=== PATIENT | female | born 1970 | race Caucasian/White ===

== ENCOUNTER 2022-01-08 10:26 | Outpatient (CLI) | payer OTHER, SELFPAY ==
[2022-01-08 14:15] LABS: Albumin* 4.7 g/dL (3.3-5.0)
[2022-01-08 14:16] LABS: Chloride* 106 mmol/L (96-114); Sodium* 141 mmol/L (135-149)
[2022-01-08 14:18] LABS: Bilirubin Total* 0.7 mg/dL (0.1-1.5); Carbon Dioxide* 28 mmol/L (20-32); Cholesterol* 233 mg/dL (90-199); Creatinine* 0.7 mg/dL (0.5-1.5); Estimated Glomerular Filt Rate 104 ml/min; Total Protein* 7.5 g/dL (6.0-8.3)
[2022-01-08 14:19] LABS: Alanine Aminotransferase* 38 U/L (4-35); Alkaline Phosphatase* 84 U/L (40-150); Aspartate Amino Transferase* 37 U/L (12-35); Blood Urea Nitrogen* 15 mg/dL (7-30); Calcium* 9.5 mg/dL (8.4-10.6); Glucose* 86 mg/dL (60-115); HDL Cholesterol* 77 mg/dL (>=50); LDL Cholesterol Calculated 139 mg/dL (<100); Triglycerides* 83 mg/dL (40-149)
== END 2022-01-08 10:27 | disposition home or self-care (01) ==
PROVIDERS: PCP Physician Assistant Medical; Visit Provider Physician Assistant Medical
DX: Z00.00 Encounter for general adult medical examination without abnormal findings (principal); Z13.6 Encounter for screening for cardiovascular disorders
CPT/HCPCS: 80053; 80061

== ENCOUNTER 2022-03-12 18:14 | Outpatient (CLI) | payer OTHER, SELFPAY ==
--- NOTE | 2022-03-12 18:30 | CRLHL7_ITS ---
For Patients: As a result of the Century Cures Act, medical imaging exams and procedure reports are released immediately into your electronic medical record. You may view this report before your referring provider. If you have questions, please contact your health care provider. BILATERAL SCREENING MAMMOGRAM WITH COMPUTER-AIDED DETECTION AND TOMOSYNTHESIS TECHNIQUE: CC and MLO views were obtained. These mammographic images have been obtained using full-field digital technique. These mammographic images were interpreted with the benefit of computer-aided detection. Breast Tomosynthesis was used in this interpretation. COMPARISON FILM: 01/25/19, 01/22/18, 01/21/17. FINDINGS: The breasts are heterogeneously dense, which may obscure small masses IMPRESSION: There is no radiographic evidence for malignancy. ASSESSMENT: BI-RADS Category 1: Negative RECOMMENDATION: Routine screening mammogram in 1 year. A lay language report of this examination will be provided to the patient. Enoc Summers M.D. Diagnostic Radiologist [email or web address] Transcribed: 2:27 pm DW/Dictated by: Enoc Summers MD @ 03/13/2022 12:23:00 PM (Electronically Signed)
== END 2022-03-12 18:15 | disposition home or self-care (01) ==
LOC: MAMMO 18:15
PROVIDERS: PCP Physician Assistant Medical; Visit Provider Physician Assistant Medical
DX: Z12.31 Encounter for screening mammogram for malignant neoplasm of breast (principal); R92.2 Inconclusive mammogram
CPT/HCPCS: 77063; 77067

== ENCOUNTER 2022-11-04 12:07 | Outpatient (CLI) | payer OTHER, SELFPAY | END 2022-11-04 12:08 | disposition home or self-care (01) | LOC: NFLDREF 11-06 06:10 | PROVIDERS: PCP Physician Assistant Medical; Referring Provider Physician Assistant Medical; Visit Provider Registered Nurse | DX: R30.0 Dysuria (principal); N39.0 Urinary tract infection, site not specified; N30.01 Acute cystitis with hematuria | CPT/HCPCS: 87086; 87186 ==

== ENCOUNTER 2023-01-09 08:04 | Outpatient (CLI) | payer OTHER, SELFPAY | END 2023-01-09 08:05 | disposition home or self-care (01) | PROVIDERS: PCP Physician Assistant Medical; Visit Provider Physician Assistant Medical | DX: R74.8 Abnormal levels of other serum enzymes (principal); R79.89 Other specified abnormal findings of blood chemistry | CPT/HCPCS: 80053; 80061; 84439; 84443; 86703; 86803 ==

== ENCOUNTER 2023-01-13 08:52 | Outpatient (CLI) | payer OTHER, SELFPAY | END 2023-01-13 08:53 | disposition home or self-care (01) | LOC: LKVREF 08:53 | PROVIDERS: PCP Physician Assistant Medical; Visit Provider Physician Assistant Medical | DX: D72.819 Decreased white blood cell count, unspecified (principal); R74.8 Abnormal levels of other serum enzymes | CPT/HCPCS: 86618 ==

== ENCOUNTER 2023-04-01 18:05 | Outpatient (CLI) | payer OTHER, SELFPAY ==
--- NOTE | 2023-04-01 18:20 | MM_ITS ---
Final Report Patient: LUIS VILLAFANA Facility:?[facility] Patient ID:?[id number] :?[id number] Study:?XRay Breast Bilateral 3D W/CAD-04/01/2023 6:27:43 PM Ordering Physician:Elsa Velez Final Report: BILATERAL SCREENING MAMMOGRAM WITH COMPUTER-AIDED DETECTION AND TOMOSYNTHESIS TECHNIQUE: CC and MLO views were obtained. These mammographic images have been obtained using full-field digital technique. These mammographic images were interpreted with the benefit of computer-aided detection. Breast Tomosynthesis was used in this interpretation. COMPARISON FILM: 03/12/22, 01/25/19, 01/22/18. FINDINGS: The breasts are heterogeneously dense, which may obscure small masses. IMPRESSION: There is no radiographic evidence for malignancy. ASSESSMENT: BI-RADS Category 1: Negative RECOMMENDATION: Routine screening mammogram in 1 year. A lay language report of this examination will be provided to the patient. Enoc Summers M.D. Diagnostic Radiologist [email or web address] NOA/sp R& Transcribed: 4: 46 p.m. SP/Dictated by: Enoc Summers MD @ 04/02/2023 9:58:00 AM (Electronic Signature)
== END 2023-04-01 18:06 | disposition home or self-care (01) ==
LOC: MAMMO 18:05
PROVIDERS: PCP Physician Assistant Medical; Visit Provider Physician Assistant Medical
DX: Z12.31 Encounter for screening mammogram for malignant neoplasm of breast (principal); R92.2 Inconclusive mammogram
CPT/HCPCS: 77063; 77067

== ENCOUNTER 2024-05-27 10:40 | Outpatient (CLI) | payer OTHER, SELFPAY | END 2024-05-27 10:41 | disposition home or self-care (01) | PROVIDERS: PCP Physician Assistant Medical; Visit Provider Physician Assistant Medical | DX: R74.8 Abnormal levels of other serum enzymes (principal); R94.6 Abnormal results of thyroid function studies | CPT/HCPCS: 80076; 84443 ==

== ENCOUNTER 2024-07-08 10:30 | Outpatient (CLI) | payer OTHER, SELFPAY ==
--- NOTE | 2024-07-08 10:45 | CRLHL7_ITS ---
For Patients: As a result of the Century Cures Act, medical imaging exams and procedure reports are released immediately into your electronic medical record. You may view this report before your referring provider. If you have questions, please contact your health care provider. INDICATION: Elevated serum enzymes COMPARISON: none TECHNIQUE: Real time black scale imaging and color Doppler analysis was performed of the right upper quadrant. FINDINGS: The patient`s liver is of normal size and has uniform echogenicity. There is a normal appearance of the hepatic IVC and proximal abdominal aorta. There is no evidence of ascites. The gallbladder is of normal size and there are multiple mobile echogenic and shadowing stones in the gallbladder lumen. The gallbladder wall measures 3 mm in thickness. The common bile duct is of normal size and measures 4 mm in diameter at the level of the thea hepatis. The pancreas appears normal. There is no evidence of a stone or hydronephrosis within the right kidney. The right kidney measures 10.0 cm in length. IMPRESSION: Multiple gallstones are present consistent with cholelithiasis. Remainder unremarkable. Dictated by Enoc Summers MD @ 07/08/2024 11:25:11 AM (Electronically Signed)
== END 2024-07-08 10:31 | disposition home or self-care (01) ==
LOC: US 10:32
PROVIDERS: PCP Physician Assistant Medical; Visit Provider Physician Assistant Medical
DX: R74.8 Abnormal levels of other serum enzymes (principal); K80.20 Calculus of gallbladder without cholecystitis without obstruction
CPT/HCPCS: 76705

== ENCOUNTER 2025-01-20 08:02 | Outpatient (CLI) | payer OTHER, SELFPAY ==
[2025-01-22 01:10] LABS: HPV Source Cervix
[2025-01-26 14:55] LABS: Pap Test Digital Imaging Done
== END 2025-01-20 08:03 | disposition home or self-care (01) ==
PROVIDERS: PCP Physician Assistant Medical; Visit Provider Nurse Practitioner Family
DX: Z12.4 Encounter for screening for malignant neoplasm of cervix (principal); Z11.51 Encounter for screening for human papillomavirus (HPV); Z13.6 Encounter for screening for cardiovascular disorders; R74.8 Abnormal levels of other serum enzymes
CPT/HCPCS: 80053; 80061; 87624; 87625; 88141; 88142; 88175